=== PATIENT | male | born 1980 | race Caucasian/White ===

== ENCOUNTER → 2016-08-31 | Outpatient (CLI) | payer OTHER ==
[2014-02-04 17:09] VITALS: BP 141/94
[~2016-08-31] MED LIST: BACL10TA PO; CITA10TA4 PO; DICL25TA PO; DOXY50CA PO; HYDR-971 PO
--- NOTE | 2016-08-31 10:38 | RAD ---
Indication left knee pain. AP oblique and lateral views of the left knee were obtained. No bony abnormality is seen
== END | disposition home or self-care (01) ==
LOC: DXRADRC 10:11
PROVIDERS: ATTEND Physician Assistant Medical
DX: M25.562 Pain in left knee (principal); G89.29 Other chronic pain
CPT/HCPCS: 73562